=== PATIENT | male | born 1935 | race Caucasian/White ===

== ENCOUNTER 2017-05-23 11:16 | Observation (INO) | payer OTHER ==
[2017-05-23] VITALS (7 sets, daily range): BP systolic 139–162; BP diastolic 73–80; PULSE 70–85; RESP 16–20; TEMP 97.5–99.3; O2SAT 98–100
[~2017-05-23] VITALS: Ht 180.3 cm; Wt 110.0 kg
[~2017-05-23 11:16] MED LIST: AMMO12CR10 TOP; ATOR40TA PO; BUPR150T3 PO; CETI10 PO; DESE1CRE TOP; FOLI1 PO; GLIP10TA6 PO; HYDR-2768 PO; IMDU30TA PO; LISI-366 PO; METO25 PO; MOBI7.5T PO; NITR0.4S SL; NORV5TAB PO; NOVONP2 SQ; PARO40TA PO
--- NOTE | 2017-05-23 11:39 | PD ---
HPI Chief Complaint: Chest Pain Time Seen by Provider: 11:32 Travel History International Travel<30 days: No Contact w/Intl Traveler<30days: No Traveled to known affect area: No History of Present Illness HPI [place] in [place] for evaluation of chest pain ongoing for 2 days. Pain is substernal and radiates into his neck. Pain is pressure-like in nature. Patient reports associated headache, vomiting, and diaphoresis. Reports vomiting is nonbloody and nonbilious. Has a total of 8 vomiting episodes. Pain improves with rest and is worse with exertion. Pain is constant. Patient was given 4 baby aspirin at the [facility] prior to being sent to the emergency department then received 2 nitroglycerin en route by EMS that seemed to help with his pain. 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, REMOVED) Cardiac Catheterization: Yes Cardiovascular Problems: Yes High Cholesterol: Yes Congestive Heart Failure: No Diabetes: Yes Diminished Hearing: No Hypertension: Yes Past Surgical History Coronary Artery Bypass Graft: Yes Tonsillectomy: Yes Social History Alcohol Use: No Tobacco Use: No Substance Use: No Allergies-Medications (Allergen,Severity, Reaction): Coded Allergies: mold (Unverified Allergy, Severe, 05/23/17) sildenafil (Unverified Allergy, Severe, Headache, 05/23/17) Reported Meds & Prescriptions Reported Meds & Active Scripts Active Norvasc (Amlodipine Besylate) 5 Mg Tab 5 Mg PO DAILY 30 Days Reported Bupropion HCl 100 Mg Tab 150 Mg PO HS Azithromycin 250 Mg Tab 250 Mg PO DAILY Atorvastatin (Atorvastatin Calcium) 80 Mg Tab 40 Mg PO HS Paxil (Paroxetine HCl) 40 Mg Tab 40 Mg PO DAILY Nitrostat (Nitroglycerin) 0.4 Mg Sub 0.4 Mg SL DIRECTED Metoprolol Tartrate 25 mg (Metoprolol Tartrate) 25 Mg Tab 12.5 Mg PO BID Mobic (Meloxicam) 7.5 Mg Tab 7.5 Mg PO DAILY Lisinopril 40 mg (Lisinopril) 40 Mg Tab 1 Tab PO DAILY Imdur (Isosorbide Mononitrate) 30 Mg Tab 30 Mg PO DAILY Novolin N (Insulin Human NPH) 100 Units/Ml Inj 10 Units SQ HS Hctz (Hydrochlorothiazide) 25 Mg Tab 25 Mg PO DAILY Glipizide 10 Mg Tab 10 Mg PO BID TAKE BEFORE MEALS Folate 1 Mg Tab (Folic Acid) 1 Mg Tab 0.5 Mg PO DAILY Clotrimazole 1 % Cre 1 Applic TOP DAILY APPLY TO: Zyrtec 10 Mg Tab (Cetirizine HCl) 10 Mg Tab 10 Mg PO HS Bupropion Hcl Xl (Bupropion HCl) 150 Mg Tab 150 Mg PO DAILY Ammonium Lactate (Lactic Acid) 12 % Cre 1 Applic TOP DAILY APPLY TO: Review of Systems Except as stated in HPI: all other systems reviewed are Neg Physical Exam Narrative GENERAL: Well-developed, overly nourished, in no acute distress, and non-ill appearing. SKIN: Focused skin assessment warm and dry. HEAD: Atraumatic. Normocephalic. EYES: Pupils equal and round. EOMI. No scleral icterus. No injection or drainage. ENT: No nasal bleeding or discharge. Mucous membranes pink and moist. NECK: Trachea midline. No JVD. Supple. No nuclear rigidity. CARDIOVASCULAR: Regular rate and rhythm. 1/6 Murmur appreciated. Radial pulses 2+, intact, and equal bilaterally. RESPIRATORY: No accessory muscle use. No respiratory distress. Clear to auscultation. Breath sounds equal bilaterally. GASTROINTESTINAL: Abdomen soft, non-tender, nondistended, and no guarding. Hepatic and splenic margins not palpable. Normal bowel sounds 4. No pulsatile mass. MUSCULOSKELETAL: No obvious deformities. No clubbing. No cyanosis. No edema. Full range of motion. NEUROLOGICAL: Awake and alert. No obvious cranial nerve deficits. Motor grossly within normal limits. Normal speech. PSYCHIATRIC: Appropriate mood and affect; insight and judgment normal. Data Data Last Documented VS Vital Signs Date Time Temp Pulse Resp B/P Pulse Ox O2 Delivery O2 Flow Rate FiO2 05/23/17 11:34 100 Room Air 05/23/17 11:33 139/75 05/23/17 11:24 97.7 84 18 Orders Electrocardiogram (05/23/17 11:31) Basic Metabolic Panel (Bmp) (05/23/17 11:31) Ckmb (Isoenzyme) Profile (05/23/17 11:31) Complete Blood Count With Diff (05/23/17 11:31) Magnesium (Mg) (05/23/17 11:31) Prothrombin Time / Inr (Pt) (05/23/17 11:31) Act Partial Throm Time (Ptt) (05/23/17 11:31) Troponin I (05/23/17 11:31) Chest, Single Ap (05/23/17 11:31) Ecg Monitoring (05/23/17 11:31) Bilateral Bp Monitoring (05/23/17 11:31) Iv Access Insert/Monitor (05/23/17 11:31) Oximetry (05/23/17 11:31) Oxygen Administration (05/23/17 11:31) Sodium Chloride 0.9% Flush (Ns Flush) (05/23/17 11:45) Nitroglycerin Sl (Nitrostat Sl) (05/23/17 11:45) CKMB (05/23/17 11:40) CKMB% (05/23/17 11:40) Labs Laboratory Tests Test 05/23/17 11:40 White Blood Count 9.7 TH/MM3 Red Blood Count 4.70 MIL/MM3 Hemoglobin 15.2 GM/DL Hematocrit 44.3 % Mean Corpuscular Volume 94.3 FL Mean Corpuscular Hemoglobin 32.3 PG Mean Corpuscular Hemoglobin 34.2 % Concent Red Cell Distribution Width 13.2 % Platelet Count 157 TH/MM3 Mean Platelet Volume 8.0 FL Neutrophils (%) (Auto) 79.1 % Lymphocytes (%) (Auto) 13.1 % Monocytes (%) (Auto) 6.4 % Eosinophils (%) (Auto) 0.8 % Basophils (%) (Auto) 0.6 % Neutrophils # (Auto) 7.7 TH/MM3 Lymphocytes # (Auto) 1.3 TH/MM3 Monocytes # (Auto) 0.6 TH/MM3 Eosinophils # (Auto) 0.1 TH/MM3 Basophils # (Auto) 0.1 TH/MM3 CBC Comment DIFF FINAL Differential Comment Prothrombin Time 11.7 SEC Prothromb Time International 1.1 RATIO Ratio Activated Partial 21.5 SEC Thromboplast Time Sodium Level 137 MEQ/L Potassium Level 4.0 MEQ/L Chloride Level 103 MEQ/L Carbon Dioxide Level 25.4 MEQ/L Anion Gap 9 MEQ/L Blood Urea Nitrogen 15 MG/DL Creatinine 1.33 MG/DL Estimat Glomerular Filtration 52 ML/MIN Rate Random Glucose 196 MG/DL Calcium Level 9.0 MG/DL Magnesium Level 2.1 MG/DL Total Creatine Kinase 184 U/L Creatine Kinase MB 2.9 NG/ML Troponin I LESS THAN 0.02 NG/ML Exceptions Acute Myocardial Infarction ASA Not Given on Arrival: Already taken by patient Aspirin Comment: [facility] MDM Medical Decision Making Medical Screen Exam Complete: Yes Emergency Medical Condition: Yes Interpretation(s) EKG reviewed by Dr. Sheets shows paced rhythm with a ventricular rate of 86. No STEMI. Chest x-ray read by the radiologist shows: Post surgical changes. Mild, chronic interstitial changes but no acute abnormality. Differential Diagnosis Acute coronary syndrome, pneumonia, pneumothorax, electrolyte abnormality, atypical chest pain, other Narrative Course Patient was seen and examined. IV was established. Patient states on continues youth nutritional monitor. Initial laboratory and radiological studies were ordered and reviewed. Discussed all findings and plan of care with patient who is agreeable for admission. All questions were answered. Discussed patient with Dr. Sheets, who is in agreement with plan of care and disposition. Patient remained stable throughout ED course. Diagnosis Primary Impression: Chest pain Qualified Code: R07.9 - Chest pain, unspecified type Admitting Information Admitting Physician Requests: Observation Condition: Stable Rojelio Kelly May 23, 2017 11:39
[2017-05-23] MEDS: NITROGLYCERIN 0.4 MG SL 25 TABS/BTL SL SCH ×3 (11:40→11:55)
[2017-05-23] MEDS ORDERED: SODIUM CHLORIDE 0.9% FLUSH 10 ML FLUSH IVF PRN (11:45)
[2017-05-23 11:53] LABS: AUTOMATED NEUTROPHIL # 7.7 TH/MM3 (1.8-7.7); BASOPHIL # 0.1 TH/MM3 (0-0.2); BASOPHIL % 0.6 % (0.0-2.0); EOSINOPHIL # 0.1 TH/MM3 (0-0.4); EOSINOPHIL % 0.8 % (0.0-4.0); HEMATOCRIT 44.3 % (39.0-51.0); HEMO FLAGS DIFF FINAL; LYMPH % 13.1 % (9.0-44.0); LYMPHOCYTE # 1.3 TH/MM3 (1.0-4.8); MEAN CELL VOLUME 94.3 FL (80.0-100.0); MEAN CORPUSCULAR HEMOGLOBIN 32.3 PG (27.0-34.0); MEAN CORPUSCULAR HGB CONC 34.2 % (32.0-36.0); MONO % 6.4 % (0.0-8.0); NEUT % 79.1 % (16.0-70.0); PLATELET COUNT 157 TH/MM3 (150-450); RED CELL DISTRIBUTION WIDTH 13.2 % (11.6-17.2); WHITE BLOOD COUNT 9.7 TH/MM3 (4.0-11.0)
[2017-05-23] MEDS ORDERED: BUPR100T4 PO (11:59)
[2017-05-23] MEDS ORDERED: ATOR1TAB18 PO (11:59)
[2017-05-23] MEDS ORDERED: AZIT250T3 PO (11:59)
[2017-05-23 12:06] LABS: APTT (PATIENT) 21.5 SEC (24.3-30.1); INTERNATIONAL NORMALIZED RATIO 1.1 RATIO; PROTHROMBIN TIME - PATIENT 11.7 SEC (9.8-11.6)
[2017-05-23 12:07] LABS: ANION GAP 9 MEQ/L (5-15); BICARBONATE 25.4 MEQ/L (21.0-32.0); BLOOD UREA NITROGEN 15 MG/DL (7-18); CHLORIDE 103 MEQ/L (98-107); GLOMERULAR FILTRATION RATE 52 ML/MIN (>89); MAGNESIUM 2.1 MG/DL (1.5-2.5); SODIUM (NA) 137 MEQ/L (136-145)
[2017-05-23 12:12] LABS: CREATINE KINASE 184 U/L (39-308)
[2017-05-23 12:25] LABS: CKMB 2.9 NG/ML (0.5-3.6)
--- NOTE | 2017-05-23 12:31 | RADRPT ---
EXAM DATE/TIME: 05/23/2017 12:00 [facility] COMPARISON: CHEST SINGLE AP, March 01, 2015, 12:39. INDICATIONS : Chest pain. MEDICAL HISTORY : Hypertension. Myocardial infarction. Diabetes mellitus type II. SURGICAL HISTORY : CABG. Pacemaker. ENCOUNTER: Initial ACUITY: 1 day PAIN SCORE: 6/10 LOCATION: Left upper chest FINDINGS: The patient is post median sternotomy. The heart is mildly enlarged. There is a transvenous pacer. Th ere are mild chronic interstitial changes. These are stable compared to previous exam of 03/01/15.The visualized bony structures demonstrate mild degenerative changes but are otherwise intact. CONCLUSION: 1. Post surgical changes. Mild, chronic interstitial changes but no acute abnormality. Joshua Han MD on May 23, 2017 at 12:29 Board Certified Radiologist. This report was verified electronically.
[2017-05-23] MEDS ORDERED: CETI10CH CHEW (12:46)
[2017-05-23] MEDS ORDERED: FOLI1TAB6 PO (12:46)
[2017-05-23] MEDS ORDERED: BUSP15TA PO (12:46)
[2017-05-23] MEDS ORDERED: DIVA250T3 PO (12:46)
[2017-05-23] MEDS ORDERED: ZOLP10TA3 PO (12:59)
[2017-05-23] MEDS ORDERED: METO25TA3 PO (12:59)
[2017-05-23] MEDS ORDERED: GLUC4CHW CHEW (12:59)
[2017-05-23] MEDS ORDERED: LANTUS2P SQ (12:59)
[2017-05-23] MEDS ORDERED: NAPR375T PO (12:59)
[2017-05-23] MEDS ORDERED: LISI40TA PO (12:59)
[2017-05-23] MEDS ORDERED: NITR1SUB3 SL (12:59)
[2017-05-23] MEDS ORDERED: PRED1SUS6 (12:59)
[2017-05-23] MEDS ORDERED: FURO20TA PO (12:59)
[2017-05-23] MEDS ORDERED: PARO40TA2 PO (12:59)
[2017-05-23] MEDS ORDERED: ONDANSETRON HCL 4 MG/2 ML VIAL IV PUSH ONE (16:30)
[2017-05-23] MEDS: NITROGLYCERIN 2% OINT 1 GM PACKET TOPICAL SCH (16:44)
[2017-05-23] MEDS ORDERED: ONDANSETRON HCL 4 MG/2 ML VIAL IV PRN (17:00)
[2017-05-23] MEDS ORDERED: ACETAMINOPHEN/HYDROcodone 325 MG/7.5 MG TAB PO PRN (17:00)
[2017-05-23] MEDS ORDERED: LIDOCAINE VISCOUS 2% SOLN 15 ML UDC PO ONE (17:00)
[2017-05-23] MEDS ORDERED: ATROPINE/SCOPOLAM/HYOSCYAM/PB ELIXIR 10 ML CUP PO ONE (17:00)
[2017-05-23] MEDS ORDERED: SODIUM CHLORIDE 0.9% FLUSH 5 ML FLUSH IVF PRN (17:00)
[2017-05-23] MEDS ORDERED: ALUMINUM/MAGNESIUM/SIMETH 30 ML CUP PO ONE (17:00)
[2017-05-23] MEDS ORDERED: ACETAMINOPHEN 500 MG CPLT PO PRN (17:00)
--- NOTE | 2017-05-23 17:10 | HHI.HP ---
H[facility] Phys[facility] Chief Complaint Chest pain History of Present Illness This is a 81-year-old male that presents to ED with history of CAD with bypass 2012 the complains of chest discomfort as been present for 2 days. He states is essentially been constant. The discomfort will almost go away but has never completely resolved. It does wax and wane. He is found that activity which includes walking to the bathroom will worsen the discomfort. He has been short of breath with it, nauseous, diaphoretic. He estimates he's had 8 episodes of emesis throughout this. He states it does feel similar to when he needed his bypass. Cannot recall seeing administration clerk recently through the [place]. Cannot recall recent stress testing. He denies abdominal pain except for when he has emesis. It is been nonbloody emesis. Denies dark or tarry stool. Denies bloody stools. Review of Systems General: Patient denies fevers, chills recent, and recent travel HEENT: Patient denies headache, sore throat, difficulty swallowing. Cardiovascular: Has the chest discomfort as mentioned above. Denies sensation of heart beating rapidly or irregularly. No syncope. He has been diaphoretic. Respiratory: He has been short of breath. Denies inspirational chest discomfort. Denies coughing wheezing or hemoptysis. GI: He has had nausea and emesis. Denies hematemesis. Denies dark or bloody stools. Denies constipation or diarrhea. Musculoskeletal: Patient denies joint pain or edema. Denies calf pain or edema. Neurovascular: Patient denies numbness, tingling, weakness in extremities. Denies headache. Endocrine: Denies polyuria and polydipsia. Hematologic: Denies easy bruising. Skin: Denies rash or itching. Past Family Social History Allergies: Coded Allergies: mold (Unverified Allergy, Severe, 05/23/17) sildenafil (Unverified Allergy, Severe, Headache, 05/23/17) Past Medical History CAD with CABG. Hypertension, hyperlipidemia and diabetes. Past Surgical History CABG in 2012. Reported Medications Reported Meds & Active Scripts Active Reported Zolpidem (Zolpidem Tartrate) 10 Mg Tab 5 Mg PO HS PRN Prednisolone Acetate Opth 1% Susp Paroxetine (Paroxetine HCl) 40 Mg Tab 40 Mg PO DAILY Nitroglycerin SL (Nitroglycerin) 0.4 Mg Subl 0.4 Mg SL DIRECTED PRN ONE TABLET UNDER THE TONGUE NEEDED FOR CHEST PAIN, MAY REPEAT EVERY FIVE MINUTES FOR A TOTAL OF 3 DOSES OR CALL 911 IF NO RELIEF Naproxen 375 Mg Tab 375 Mg PO BID Metoprolol Tartrate 25 Mg Tab 12.5 Mg PO BID Lisinopril 40 Mg Tab 40 Mg PO DAILY Lantus Inj (Insulin Glargine) 1,000 Unit/10 Ml Vial 42 Units SQ HS Glucose (Dextrose) 4 Gm Chew 4 Gm CHEW DIRECTED Furosemide 20 Mg Tab 20 Mg PO DAILY Folic Acid 1 Mg Tablet Divalproex ER (Divalproex Sodium) 250 Mg Robbie 750 Mg PO HS Cetirizine (Cetirizine HCl) 10 Mg Chew 10 Mg CHEW DAILY Buspirone (Buspirone HCl) 15 Mg Tab 15 Mg PO BID Bupropion HCl 100 Mg Tab 150 Mg PO HS Azithromycin 250 Mg Tab 250 Mg PO DAILY Atorvastatin (Atorvastatin Calcium) 80 Mg Tab 40 Mg PO HS Active Ordered Medications Current Medications Medications (Trade) Dose Ordered Sig/Cassie Route Start Time Stop Time Status Last Admin (NS Flush) 2 ml UNSCH PRN IVF 05/23/17 11:45 (Nitroglycerin 2% Oint) 1 inch Q6HR TOPICAL 05/23/17 18:00 05/23/17 16:44 (NS Flush) 2 ml UNSCH PRN IVF 05/23/17 17:00 UNV (NS Flush) 2 ml BID IVF 05/23/17 21:00 UNV (Tylenol) 500 mg Q4H PRN PO 05/23/17 17:00 UNV ([place] 7.5-325 Mg) 1 tab Q4H PRN PO 05/23/17 17:00 UNV (Zofran Inj) 4 mg Q6H PRN IV 05/23/17 17:00 UNV (Protonix) 40 mg DAILY PO 05/23/17 17:00 UNV (Xylocaine 2% Viscous) 10 ml STAT ONCE PO 05/23/17 17:00 05/23/17 17:01 UNV ( Liq) 10 ml NOW ONCE PO 05/23/17 17:00 05/23/17 17:01 UNV (Mag-Al Plus Susp Liq) 30 ml STAT ONCE PO 8/17/17 17:00 05/23/17 17:01 UNV Family History There is family history of CAD. Social History Patient is a lifetime nonsmoker. Denies alcohol or illicit drugs. Physical Exam Vital Signs Vital Signs Date Time Temp Pulse Resp B/P Pulse Ox O2 Delivery O2 Flow Rate FiO2 05/23/17 15:22 97.5 77 16 162/80 98 05/23/17 11:34 100 Room Air 05/23/17 11:34 100 Room Air 05/23/17 11:33 139/75 05/23/17 11:24 97.7 84 18 139/75 98 Physical Exam GENERAL: This is a well-nourished, well-developed patient, in no apparent distress. Patient speaks in clear complete sentences. Patient is pleasant. HEENT: Head is atraumatic and normocephalic. Neck is supple without lymphadenopathy and trachea is midline. No JVD or carotid bruits. CARDIOVASCULAR: Regular rate and rhythm without murmurs, gallops, or rubs. RESPIRATORY: Clear to auscultation. Breath sounds equal bilaterally. No wheezes , rales, or rhonchi. Chest wall is nontender. No use of accessory muscles. GASTROINTESTINAL: Abdomen is nontender, nondistended. Abdomen soft. No obvious pulsatile mass or bruit. No CVA tenderness. Strong femoral pulses bilaterally. Normal bowel sounds in all quadrants. MUSCULOSKELETAL: Patient is moving upper and lower extremities freely. No calf tenderness or edema, no Homans sign. Strong pulses in upper and lower extremities. NEUROLOGICAL: Patient is alert and oriented. Cranial nerves 2-12 are grossly intact. No focal deficits and speech is clear. SKIN: No rash and turgor is normal. Laboratory Laboratory Tests Test 05/23/17 11:40 White Blood Count 9.7 Red Blood Count 4.70 Hemoglobin 15.2 Hematocrit 44.3 Mean Corpuscular Volume 94.3 Mean Corpuscular Hemoglobin 32.3 Mean Corpuscular Hemoglobin 34.2 Concent Red Cell Distribution Width 13.2 Platelet Count 157 Mean Platelet Volume 8.0 Neutrophils (%) (Auto) 79.1 Lymphocytes (%) (Auto) 13.1 Monocytes (%) (Auto) 6.4 Eosinophils (%) (Auto) 0.8 Basophils (%) (Auto) 0.6 Neutrophils # (Auto) 7.7 Lymphocytes # (Auto) 1.3 Monocytes # (Auto) 0.6 Eosinophils # (Auto) 0.1 Basophils # (Auto) 0.1 CBC Comment DIFF FINAL Differential Comment Prothrombin Time 11.7 Prothromb Time International 1.1 Ratio Activated Partial 21.5 Thromboplast Time Sodium Level 137 Potassium Level 4.0 Chloride Level 103 Carbon Dioxide Level 25.4 Anion Gap 9 Blood Urea Nitrogen 15 Creatinine 1.33 Estimat Glomerular Filtration 52 Rate Random Glucose 196 Calcium Level 9.0 Magnesium Level 2.1 Total Creatine Kinase 184 Creatine Kinase MB 2.9 Troponin I LESS THAN 0.02 Result Diagram: 05/23/17 1140 05/23/17 1140 Imaging Last 48 hours Impressions Chest X-Ray 05/23/17 1131 Signed Impressions: Service Date/Time: , May 23, 2017 12:00 - CONCLUSION: 1. Post surgical changes. Mild, chronic interstitial changes but no acute abnormality. Joshua Han MD Course Initial EKG has sinus rhythm without significant ST segment depressions or elevations. Assessment and Plan Assessment and Plan * Chest pain: Patient states his symptoms are similar to when he needed his bypass. He is having continued chest discomfort that waxes and wanes however. He was seen by Dr. Barrie Jones of cardiology in the chest pain center and will be admitted to hospitalist services to further evaluate his frequent emesis and chest pain. He was given Nitrol ointment. He was given GI cocktail. Patient is agreeable to this plan. * Diabetes: Continue current medication. Have sliding scale insulin coverage. * Hypertension: Continue current medication. * Hyperlipidemia: Continue current medication. Kamlesh Dumont May 23, 2017 17:10
[2017-05-23] MEDS: PANTOPRAZOLE SOD 40 MG DELAYED RELEASE TAB PO SCH (17:28)
[2017-05-23] MEDS ORDERED: DEXTROSE 50% IN WATER 50 ML VIAL(D50) IV PRN (17:45)
[2017-05-23] MEDS ORDERED: GLUCAGON 1 MG/ML VIAL IM/SQ PRN (17:45)
[2017-05-23] MEDS ORDERED: PILL SPLITTER OTHER PRN (18:00)
[2017-05-23] MEDS ORDERED: PROMETHAZINE INJ 25 MG/ML VIAL IM ONE (18:15)
[2017-05-23] MEDS ORDERED: ZOLPIDEM TARTRATE 5 MG TAB PO PRN (18:15)
[2017-05-23 18:18] LABS: CREATINE KINASE 148 U/L (39-308)
--- NOTE | 2017-05-23 18:19 | HHI.HP ---
HPI Service [facility] Primary Care Physician [facility] Admission Diagnosis chest pain Diagnoses: Chief Complaint: Chest pain Travel History International Travel<30 Days: No Contact w/Intl Traveler <30 Da: No Traveled to Known Affected Are: No History of Present Illness Written by Juliette Santos, acting as scribe for Dr. Green on 05/23/17 at 18: 19. Mr. Martinez is a 81-year-old male patient with a known medical history of dyslipidemia, CAD with CABG in 2012, diabetes and hypertension who presented to the ED with complaints of chest pain. Patient states that he had his first bout of vomiting on Saturday around 7 am and has counted a total of 8 bouts of vomiting since then. He states that he had an associated headache, chest pain, diaphoresis and abdominal pain. Patient states that the chest pain has been constant since Saturday, will subside at times with rest but will never completely go away. He does state that the pain is worse with activity. Also states that the pain radiates up his neck. States that the pain does relate similarity to his chest pain at the time before his CABG in 2012. Patient was seen [facility] the [facility] today before presentation to the ED and was given 4 baby aspirin and 2 nitroglycerin via EMS which seemed to relieve the pain. Review of Systems Constitutional: COMPLAINS OF: Diaphoretic episodes, DENIES: Fever, Chills Endocrine: DENIES: Polydipsia, Polyuria Cardiovascular: COMPLAINS OF: Chest pain Gastrointestinal: COMPLAINS OF: Nausea, Vomiting, DENIES: Constipation, Diarrhea Neurologic: COMPLAINS OF: Headache Except as stated in HPI: all other systems reviewed are Neg Past Family Social History Past Medical History CAD with CABG. Hypertension, hyperlipidemia and diabetes. Past Surgical History CABG in 2012. Left ankle surgery x 5 Left ulnar fracture repair. Reported Medications Reported Meds & Active Scripts Active Reported Zolpidem (Zolpidem Tartrate) 10 Mg Tab 5 Mg PO HS PRN Prednisolone Acetate Opth 1% Susp Paroxetine (Paroxetine HCl) 40 Mg Tab 40 Mg PO DAILY Nitroglycerin SL (Nitroglycerin) 0.4 Mg Subl 0.4 Mg SL DIRECTED PRN ONE TABLET UNDER THE TONGUE NEEDED FOR CHEST PAIN, MAY REPEAT EVERY FIVE MINUTES FOR A TOTAL OF 3 DOSES OR CALL 911 IF NO RELIEF Naproxen 375 Mg Tab 375 Mg PO BID Metoprolol Tartrate 25 Mg Tab 12.5 Mg PO BID Lisinopril 40 Mg Tab 40 Mg PO DAILY Lantus Inj (Insulin Glargine) 1,000 Unit/10 Ml Vial 42 Units SQ HS Glucose (Dextrose) 4 Gm Chew 4 Gm CHEW DIRECTED Furosemide 20 Mg Tab 20 Mg PO DAILY Folic Acid 1 Mg Tablet 1 PO DAILY Divalproex ER (Divalproex Sodium) 250 Mg Robbie 750 Mg PO HS Cetirizine (Cetirizine HCl) 10 Mg Chew 10 Mg CHEW DAILY Buspirone (Buspirone HCl) 15 Mg Tab 15 Mg PO BID Bupropion HCl 100 Mg Tab 150 Mg PO HS Azithromycin 250 Mg Tab 250 Mg PO DAILY Atorvastatin (Atorvastatin Calcium) 80 Mg Tab 40 Mg PO HS Allergies: Coded Allergies: mold (Unverified Allergy, Severe, 05/23/17) sildenafil (Unverified Allergy, Severe, Headache, 05/23/17) Active Ordered Medications Current Medications Medications (Trade) Dose Ordered Sig/Cassie Route Start Time Stop Time Status Last Admin (Nitroglycerin 2% Oint) 1 inch Q6HR TOPICAL 05/23/17 18:00 05/23/17 16:44 (NS Flush) 2 ml UNSCH PRN IVF 05/23/17 17:00 (NS Flush) 2 ml BID IVF 05/23/17 21:00 (Tylenol) 500 mg Q4H PRN PO 05/23/17 17:00 (Riley 7.5-325 Mg) 1 tab Q4H PRN PO 05/23/17 17:00 (Zofran Inj) 4 mg Q6H PRN IV 05/23/17 17:00 (Protonix) 40 mg DAILY PO 05/23/17 17:00 05/23/17 17:28 (Lipitor) 40 mg HS PO 05/23/17 21:00 UNV (Wellbutrin) 150 mg HS PO 05/23/17 21:00 UNV (Buspar) 15 mg BID PO 05/23/17 21:00 UNV (Depakote Er) 750 mg HS PO 05/23/17 21:00 UNV (Lasix) 20 mg DAILY PO 05/24/17 09:00 UNV (Lantus Inj) 42 units HS SQ 05/23/17 21:00 UNV (Lopressor) 12.5 mg BID PO 05/23/17 21:00 UNV (Paxil) 40 mg DAILY PO 05/24/17 09:00 UNV (Ambien) 5 mg HS PRN PO 05/23/17 17:15 UNV Non-Formulary Medication 40 mg DAILY PO 05/24/17 09:00 UNV (D50w (Vial) Inj) 25 ml UNSCH PRN IV 05/23/17 17:45 UNV (Glucagon Inj) 1 mg UNSCH PRN IM/SQ 05/23/17 17:45 UNV (Phenergan Inj) 25 mg ONCE ONCE IM 05/23/17 17:45 05/23/17 17:46 UNV Family History Paternal medical history significant for OK at the age of 5252 years old. Social History Patient denies any prior or current tobacco use. Denies any alcohol use. Denies any illicit drug use. Physical Exam Vital Signs Vital Signs Date Time Temp Pulse Resp B/P Pulse Ox O2 Delivery O2 Flow Rate FiO2 05/23/17 15:22 97.5 77 16 162/80 98 05/23/17 11:34 100 Room Air 05/23/17 11:34 100 Room Air 05/23/17 11:33 139/75 05/23/17 11:24 97.7 84 18 139/75 98 Physical Exam GENERAL: This is a well-nourished, well-developed patient, in no apparent distress. SKIN: No rashes, ecchymoses or lesions. Cool and clammy. HEENT: Atraumatic. Normocephalic. Pupils equal round and reactive. Extraocular motions intact. No scleral icterus. No injection or drainage. Nose without bleeding. Airway patent. NECK: Trachea midline. No JVD or lymphadenopathy. Supple. CARDIOVASCULAR: Regular rate and rhythm without murmurs, gallops, or rubs. RESPIRATORY: Clear to auscultation. Breath sounds equal bilaterally. No wheezes , rales, or rhonchi. GASTROINTESTINAL: Abdomen soft, non-tender. Round and obese. No guarding. MUSCULOSKELETAL: Extremities without clubbing, cyanosis, or edema. No joint tenderness, effusion, or edema noted. NEUROLOGICAL: Awake and alert. Cranial nerves II through XII intact. Motor and sensory grossly within normal limits. Five out of 5 muscle strength in all muscle groups. Normal speech. Laboratory Laboratory Tests Test 05/23/17 11:40 White Blood Count 9.7 Red Blood Count 4.70 Hemoglobin 15.2 Hematocrit 44.3 Mean Corpuscular Volume 94.3 Mean Corpuscular Hemoglobin 32.3 Mean Corpuscular Hemoglobin 34.2 Concent Red Cell Distribution Width 13.2 Platelet Count 157 Mean Platelet Volume 8.0 Neutrophils (%) (Auto) 79.1 Lymphocytes (%) (Auto) 13.1 Monocytes (%) (Auto) 6.4 Eosinophils (%) (Auto) 0.8 Basophils (%) (Auto) 0.6 Neutrophils # (Auto) 7.7 Lymphocytes # (Auto) 1.3 Monocytes # (Auto) 0.6 Eosinophils # (Auto) 0.1 Basophils # (Auto) 0.1 CBC Comment DIFF FINAL Differential Comment Prothrombin Time 11.7 Prothromb Time International 1.1 Ratio Activated Partial 21.5 Thromboplast Time Sodium Level 137 Potassium Level 4.0 Chloride Level 103 Carbon Dioxide Level 25.4 Anion Gap 9 Blood Urea Nitrogen 15 Creatinine 1.33 Estimat Glomerular Filtration 52 Rate Random Glucose 196 Calcium Level 9.0 Magnesium Level 2.1 Total Creatine Kinase 184 Creatine Kinase MB 2.9 Troponin I LESS THAN 0.02 Result Diagram: 05/23/17 1140 05/23/17 1140 Imaging Last Impressions Chest X-Ray 05/23/17 1131 Signed Impressions: Service Date/Time: May 12:00 - CONCLUSION: 1. Post surgical changes. Mild, chronic interstitial changes but no acute abnormality. Joshua Han MD Assessment and Plan Assessment and Plan Mr. Martinez is a 81-year-old male patient with a known medical history of dyslipidemia, CAD with CABG in 2012, diabetes and hypertension who presented to the ED with complaints of chest pain and vomiting x 2 days. Atypical chest pain - Patient was seen by Dr. Jones in the chest pain center with recommendations to admit to hospitalist service for work-up of chest pain complaint and GI complaints. - Follow serial troponins and EKGs. First set unremarkable. - Nitroglycerin ointment given in [facility]. - Control pain, Riley PO q4h PRN per pain scale. - CXR reviewed showing no acute abnormalities. - EKG reviewed showing presence of atrial pacemaker, PVC, some t-wave abnormality. - Will make nothing by mouth after midnight except by mouth medications, we' ll give Lopressor tonight but will hold after midnight. Continue home Lipitor and aspirin daily. Nausea and vomiting: questionable etiology gastritis vs cardiac etiology. GI cocktail given in ED. Zofran and Phenergan PRN available. IVFs. Type 2 diabetes mellitus, chronic: Continue current medication. ACCU checks ACHS. Sliding scale insulin, cover as needed. Continue home Levemir 42 units sq Hs. Coronary artery disease with history of CABG - Continue Metoprolol and aspirin. Acute kidney injury suspect secondary to dehydration and frequent emesis - Creatinine 1.33 on presentation. No baseline creatinine available. - Encourage hydration. - Recheck BMP in am. Follow. Hypertension, chronic: Continue Lisinopril. Monitor BP closely. Hyperlipidemia: Continue home Lipitor. Depression: Continue home Bupropion and Paxil. GI Prophylaxis: Protonix. GI cocktail given. DVT Prophylaxis: SCDs/TEDs. Lovenox. I Juliette Santos May 23, 2017 18:19 Arley Green MD May 23, 2017 18:56
[2017-05-23 18:36] LABS: CKMB 2.1 NG/ML (0.5-3.6)
[2017-05-23] MEDS ORDERED: ENOXAPARIN SODIUM 30 MG/0.3 ML SYRINGE SQ SCH (20:00)
[2017-05-23] MEDS ORDERED: buPROPion HCL 100 MG TAB PO SCH (21:00)
[2017-05-23] MEDS ORDERED: METOPROLOL TARTRATE 25 MG TAB PO SCH (21:00)
[2017-05-23] MEDS: SODIUM CHLORIDE 0.9% FLUSH 5 ML FLUSH IVF SCH (22:55)
[2017-05-23] MEDS: buPROPion HCL 150 MG SUSTAINED RELEASE TAB PO SCH (22:55)
[2017-05-23] MEDS: ATORVASTATIN 40 MG TAB PO SCH (22:57)
[2017-05-23] MEDS: busPIRone HCL 10 MG TAB PO SCH (22:57)
[2017-05-23] MEDS: DIVALPROEX SODIUM E.R. 250 MG TAB PO SCH (22:57)
[2017-05-23] MEDS: INSULIN DETEMIR 100 UNITS/ML VIAL SQ SCH (22:59)
[2017-05-23] MEDS: INSULIN ASPART SUPPLEMENTAL SCALE SQ SCH (23:07)
[2017-05-24] VITALS (9 sets, daily range): BP systolic 114–145; BP diastolic 66–73; PULSE 61–76; RESP 16–19; TEMP 97.5–98.5; O2SAT 95–100
[2017-05-24] MEDS: NITROGLYCERIN 2% OINT 1 GM PACKET TOPICAL SCH ×4 (06:00→19:03)
[2017-05-24] MEDS: INSULIN ASPART SUPPLEMENTAL SCALE SQ SCH ×4 (06:48→21:00)
[2017-05-24] MEDS: busPIRone HCL 10 MG TAB PO SCH ×2 (09:11→21:49)
[2017-05-24] MEDS: SODIUM CHLORIDE 0.9% FLUSH 5 ML FLUSH IVF SCH ×2 (09:11→21:48)
[2017-05-24] MEDS: PANTOPRAZOLE SOD 40 MG DELAYED RELEASE TAB PO SCH (09:11)
[2017-05-24] MEDS: ASPIRIN 325 MG TAB PO SCH (09:12)
[2017-05-24] MEDS: FUROSEMIDE 20 MG TAB PO SCH (09:12)
[2017-05-24] MEDS: PARoxetine HCL 20 MG TAB PO SCH (09:13)
[2017-05-24] MEDS: LISINOPRIL 20 MG TAB PO SCH (09:13)
--- NOTE | 2017-05-24 11:00 | HHI.PR ---
Subjective Remarks Follow up for chest pain, dyspnea, nausea/vomiting. The patient reports his nausea/vomiting has resolved. Denies any abdominal pain/fevers/chills. He denies any chest pain today, however reports feeling "winded" just ambulating 15feet to the restroom. He is very concerned that is related to his heart. He reports very similar symptoms prior to his CABG in 2012. He states even minimal physical exertion at home will make him short of breath, diaphoretic, with chest discomfort and subsequent nausea. The patient agrees to nuclear stress test today. He does not see a steel heater, only PCP at the OR. He does admit to daily NSAID use with Naproxen bid and does not take this with food nor is he on any PPI. Objective Vitals Vital Signs Date Time Temp Pulse Resp B/P Pulse Ox O2 Delivery O2 Flow Rate FiO2 05/24/17 08:26 97.6 65 16 143/66 100 05/24/17 08:24 95 21 05/24/17 06:15 98.5 67 18 120/67 99 05/24/17 04:20 61 05/24/17 00:33 98.1 76 18 114/70 99 05/24/17 00:20 76 05/23/17 21:01 99.3 85 20 146/73 98 05/23/17 19:50 83 05/23/17 16:58 70 05/23/17 15:22 97.5 77 16 162/80 98 05/23/17 11:34 100 Room Air 05/23/17 11:34 100 Room Air 05/23/17 11:33 139/75 05/23/17 11:24 97.7 84 18 139/75 98 Result Diagram: 05/23/17 1140 05/23/17 1140 Imaging Last Impressions Chest X-Ray 05/23/17 1131 Signed Impressions: Service Date/Time: May 12:00 - CONCLUSION: 1. Post surgical changes. Mild, chronic interstitial changes but no acute abnormality. Joshua Han MD Objective Remarks GENERAL: Well-nourished, well-developed pleasant elderly male patient in [facility]. SKIN: Warm and dry. No rash. HEENT: Normocephalic. Atraumatic. Pupils equal and round. Mucous membranes pink and moist. CARDIOVASCULAR: Regular rate and rhythm. S1, S2 noted. No murmur appreciated. No chest wall tenderness to palpation. Midline sternotomy scar and left upper chest pacer. RESPIRATORY: No accessory muscle use. Clear to auscultation. Breath sounds equal bilaterally. GASTROINTESTINAL: Abdomen soft, non-tender, nondistended. Normoactive bowel sounds x4. MUSCULOSKELETAL: No obvious deformities. Extremities without clubbing, cyanosis , or edema. NEUROLOGICAL: Awake and alert. No obvious cranial nerve deficits. Motor grossly within normal limits. Moves all extremities spontaneously. Normal speech. PSYCHIATRIC: Appropriate mood and affect; insight and judgment normal. Medications and IVs Current Medications Medications (Trade) Dose Ordered Sig/Cassie Route Start Time Stop Time Status Last Admin (Nitroglycerin 2% Oint) 1 inch Q6HR TOPICAL 05/23/17 18:00 05/23/17 16:44 (NS Flush) 2 ml UNSCH PRN IVF 05/23/17 17:00 (NS Flush) 2 ml BID IVF 05/23/17 21:00 05/24/17 09:11 (Tylenol) 500 mg Q4H PRN PO 05/23/17 17:00 (Boomer 7.5-325 Mg) 1 tab Q4H PRN PO 05/23/17 17:00 (Zofran Inj) 4 mg Q6H PRN IV 05/23/17 17:00 (Protonix) 40 mg DAILY PO 05/23/17 17:00 05/24/17 09:11 (Lipitor) 40 mg HS PO 05/23/17 21:00 05/23/17 22:57 (Buspar) 15 mg BID PO 05/23/17 21:00 05/24/17 09:11 (Depakote Er) 750 mg HS PO 05/23/17 21:00 05/23/17 22:57 (Lasix) 20 mg DAILY PO 05/24/17 09:00 05/24/17 09:12 (Levemir Inj) 42 units HS SQ 05/23/17 21:00 05/23/17 22:59 (Paxil) 40 mg DAILY PO 05/24/17 09:00 05/24/17 09:13 (Ambien) 5 mg HS PRN PO 05/23/17 18:15 (Prinivil) 40 mg DAILY PO 05/24/17 09:00 05/24/17 09:13 (D50w (Vial) Inj) 25 ml UNSCH PRN IV 05/23/17 17:45 (Glucagon Inj) 1 mg UNSCH PRN IM/SQ 05/23/17 17:45 (Pill Splitter) 1 ea UNSCH PRN OTHER 05/23/17 18:00 (Aspirin) 325 mg DAILY PO 05/24/17 09:00 05/24/17 09:12 (Lovenox Inj) 30 mg Q24H SQ 05/23/17 20:00 05/23/17 22:54 (Wellbutrin Sr) 150 mg HS PO 05/23/17 22:00 05/23/17 22:55 A/P Problem List: (1) Chest pain ICD Code: R07.9 Status: Acute (2) CAD (coronary artery disease) ICD Code: I25.10 Status: Acute Assessment and Plan 81-year-old male patient with a known medical history of dyslipidemia, CAD with CABG in 2012, diabetes and hypertension who presented to the ED with complaints of chest pain and vomiting x 2 days. Chest pain: with associated dyspnea/diaphoresis/nausea; worse with any exertion , relieved by rest. CXR reviewed showing no acute abnormalities. - Patient was seen by Dr. Jones in the chest pain center with recommendations to admit to hospitalist service for further work-up of chest pain complaint and GI complaints. - Serial cardiac enzymes negative x3 and EKG reviewed, NSR with no acute ischemic changes - Continue nitro ointment, aspirin, statin, BB, pain control with norco prn - Kept NPO, check nuclear stress test today, consult cardiology if positive Nausea/vomiting: questionable etiology gastritis vs cardiac etiology. GI cocktail given in ED. Zofran and Phenergan PRN available. IVFs. Patient does take Naproxen bid, started on Protonix. N/V resolved. Type 2 diabetes mellitus, chronic: Continue current medication. ACCU checks ACHS. Sliding scale insulin, cover as needed. Continue home Levemir 42 units sq Hs. Coronary artery disease with history of CABG: Continue Metoprolol and aspirin. Acute kidney injury: suspect secondary to dehydration and frequent emesis. Creatinine 1.33, no previous labs to compare. Encourage hydration. Repeat BMP. Hypertension, chronic: Continue Lisinopril. Monitor BP closely. Hyperlipidemia: Continue home Lipitor. Depression: Continue home Bupropion and Paxil. GI Prophylaxis: Protonix. DVT Prophylaxis: SCDs/TEDs. Lovenox. Discharge Planning 1045hrs: Likely discharge if nuclear stress test unremarkable and no further chest pain/nausea/vomiting. Problem Qualifiers (1) Chest pain: Qualified Code: R07.9 - Chest pain, unspecified type Jocelyn Castanon PA-C May 24, 2017 11:00 am
[2017-05-24] MEDS ORDERED: REGADENOSON INJ 0.4 MG/5 ML SYR ONE (13:13)
--- NOTE | 2017-05-24 13:54 | EKG ---
Date Performed: 05/23/2017 Time Performed: 11:31:16 PTAGE: 81 years EKG: ELECTRONIC ATRIAL PACEMAKER NONSPECIFIC T-WAVE ABNORMALITY ABNORMAL RHYTHM ECG PREVIOUS TRACING : 03/01/2015 18.39 Since previous tracing, atrial pacing is new DOCTOR: Barrie Jones Interpretating Date/Time 05/24/2017 13:53:29
--- NOTE | 2017-05-24 13:55 | EKG ---
Date Performed: 05/23/2017 Time Performed: 16:47:01 PTAGE: 81 years EKG: Sinus rhythm MINIMAL VOLTAGE CRITERIA FOR LVH, CONSIDER NORMAL VARIANT NONSPECIFIC T-WAVE ABNORMALITY BORDERLINE ECG PREVIOUS TRACING : 05/23/2017 11.31 Since previous tracing, no significant change noted DOCTOR: Barrie Jones Interpretating Date/Time 05/24/2017 13:53:51
--- NOTE | 2017-05-24 13:56 | EKG ---
Date Performed: 05/23/2017 Time Performed: 17:50:09 PTAGE: 81 years EKG: ELECTRONIC ATRIAL PACEMAKER BORDERLINE LEFT AXIS DEVIATION MODERATE VOLTAGE CRITERIA FOR LV H, CONSIDER NORMAL VARIANT NONSPECIFIC T-WAVE ABNORMALITY ABNORMAL RHYTHM ECG PREVIOUS TRACING : 05/23/2017 16.47 compared to previous tracing atrial pacing now present DOCTOR: Barrie Jones Interpretating Date/Time 05/24/2017 13:55:04
--- NOTE | 2017-05-24 13:57 | EKG ---
Date Performed: 05/23/2017 Time Performed: 21:13:44 PTAGE: 81 years EKG: Sinus rhythm MINIMAL VOLTAGE CRITERIA FOR LVH, CONSIDER NORMAL VARIANT NONSPECIFIC T-WAVE ABNORMALITY BORDERLINE ECG PREVIOUS TRACING : 05/23/2017 17.50 Since previous tracing, no significant change noted DOCTOR: Barrie Jones Interpretating Date/Time 05/24/2017 13:56:19
--- NOTE | 2017-05-24 14:19 | RADRPT ---
EXAM DATE/TIME: 05/24/2017 12:33 [place] COMPARISON: MYOCARDIAL PERF TREADMILL SPECT, GATED W/EF, March 02, 2015, 8:43. INDICATIONS : Angina. DOSE: 30 mCi Tc99m Myoview at stress. 11 mCi Tc99m Myoview at rest. 0.4 mg Lexiscan STRESS SYMPTOMS: Headache and short of breath. EJECTION FRACTION: 44% MEDICAL HISTORY : Hypertension. SURGICAL HISTORY : CABG ENCOUNTER: Initial ACUITY: 1 day PAIN SCALE: 3/10 LOCATION: Bilateral chest TECHNIQUE: The patient underwent pharmacologic stress with infusion of prescribed dose. Continuous ECG tracing was monitored during stress. Gated SPECT imaging was performed after stress and conventional SPECT i maging was performed at rest. The examination was performed on a SPECT/CT scanner, both attenuation and non-corrected datasets were reviewed. FINDINGS: DISTRIBUTION: The maximum perfused segment at stress is in the anterior wall. PERFUSION STUDY: The pattern of perfusion at stress is within normal limits. The ventricular cavity appears mildly dil ated. GATED STUDY: There is intact wall motion.. Ejection fraction is estimated at 44%. CONCLUSION: 1. No findings to indicate stress-induced myocardial ischemia identified. The calculated ejection fra ction is somewhat low at 44%. RISK CATEGORY: Intermediate (1-3% Annual Mortality Rate) Joshua Han MD on May 24, 2017 at 14:15 Board Certified Radiologist. This report was verified electronically.
[2017-05-24 15:56] LABS: POTASSIUM 3.7 MEQ/L (3.5-5.1)
[2017-05-24] MEDS: DIVALPROEX SODIUM E.R. 250 MG TAB PO SCH (21:48)
[2017-05-24] MEDS: ATORVASTATIN 40 MG TAB PO SCH (21:49)
[2017-05-24] MEDS: buPROPion HCL 150 MG SUSTAINED RELEASE TAB PO SCH (21:49)
[2017-05-24] MEDS: INSULIN DETEMIR 100 UNITS/ML VIAL SQ SCH (21:53)
[2017-05-25] VITALS (7 sets, daily range): BP systolic 135–144; BP diastolic 65–74; PULSE 63–76; RESP 16–19; TEMP 97.7–98.5; O2SAT 95–97
[2017-05-25] MEDS: NITROGLYCERIN 2% OINT 1 GM PACKET TOPICAL SCH ×2 (05:55)
[2017-05-25] MEDS: INSULIN ASPART SUPPLEMENTAL SCALE SQ SCH ×2 (06:46→13:09)
[2017-05-25] MEDS: SODIUM CHLORIDE 0.9% FLUSH 5 ML FLUSH IVF SCH (09:00)
[2017-05-25] MEDS: ASPIRIN 325 MG TAB PO SCH (09:01)
[2017-05-25] MEDS: PARoxetine HCL 20 MG TAB PO SCH (09:02)
[2017-05-25] MEDS: PANTOPRAZOLE SOD 40 MG DELAYED RELEASE TAB PO SCH (09:02)
[2017-05-25] MEDS: FUROSEMIDE 20 MG TAB PO SCH (09:03)
[2017-05-25] MEDS: LISINOPRIL 20 MG TAB PO SCH (09:03)
[2017-05-25] MEDS: busPIRone HCL 10 MG TAB PO SCH (09:04)
--- NOTE | 2017-05-25 12:10 | HHI.PR ---
Subjective Remarks Follow up for chest pain, dyspnea, nausea/vomiting. The patient reports feeling better again today. He denies any further chest pains. Denies any shortness of breath at rest or with exertion to the restroom. Denies any further abdominal pain, nausea/vomiting. Discussed results of nuclear stress test and possibility of diagnosis of CHF. The patient does admit to intermittent lower extremity swelling. Denies any recent weight gain. Also discussed discontinuing NSAIDs, patient then requests prescription for percocet for when the pain gets "really bad". He complains of chronic pain at his left ankle, bilateral shoulders, and lower back. He states he ends up taking percocet only once a day at bedtime but he believes he is out of this medication. Objective Vitals Vital Signs Date Time Temp Pulse Resp B/P Pulse Ox O2 Delivery O2 Flow Rate FiO2 05/25/17 11:25 97.7 67 16 135/70 97 05/25/17 08:07 97.8 63 16 144/74 96 05/25/17 06:26 21 05/25/17 05:03 98.5 72 17 135/65 95 05/25/17 04:05 67 05/25/17 00:16 76 05/25/17 00:08 98.5 66 19 140/68 97 05/24/17 20:15 98.0 66 19 139/73 98 05/24/17 20:15 69 05/24/17 16:27 97.5 68 18 145/72 98 Result Diagram: 05/23/17 1140 05/24/17 1514 Imaging Last Impressions Myocardial Perfusion Scan Nuc Med 05/24/17 0000 Signed Impressions: Service Date/Time: Wednesday, May 24, 2017 12:33 - CONCLUSION: 1. No findings to indicate stress-induced myocardial ischemia identified. The calculated ejection fraction is somewhat low at 44%%. RISK CATEGORY: Intermediate (1-3%% Annual Mortality Rate) Joshua Han MD Chest X-Ray 05/23/17 1131 Signed Impressions: Service Date/Time: May 12:00 - CONCLUSION: 1. Post surgical changes. Mild, chronic interstitial changes but no acute abnormality. Joshua Han MD Objective Remarks GENERAL: Well-nourished, well-developed pleasant elderly male patient in [facility]. SKIN: Warm and dry. No rash. HEENT: Normocephalic. Atraumatic. Pupils equal and round. Mucous membranes pink and moist. CARDIOVASCULAR: Regular rate and rhythm. S1, S2 noted. No murmur appreciated. No chest wall tenderness to palpation. Midline sternotomy scar and left upper chest pacer. RESPIRATORY: No accessory muscle use. Clear to auscultation. Breath sounds equal bilaterally. GASTROINTESTINAL: Abdomen soft, non-tender, nondistended. Normoactive bowel sounds x4. MUSCULOSKELETAL: No obvious deformities. Extremities without clubbing, cyanosis , or edema. NEUROLOGICAL: Awake and alert. No obvious cranial nerve deficits. Motor grossly within normal limits. Moves all extremities spontaneously. Normal speech. PSYCHIATRIC: Appropriate mood and affect; insight and judgment normal. Medications and IVs Current Medications Medications (Trade) Dose Ordered Sig/Cassie Route Start Time Stop Time Status Last Admin (Nitroglycerin 2% Oint) 1 inch Q6HR TOPICAL 05/23/17 18:00 05/23/17 16:44 (NS Flush) 2 ml UNSCH PRN IVF 05/23/17 17:00 (NS Flush) 2 ml BID IVF 05/23/17 21:00 05/25/17 09:00 (Tylenol) 500 mg Q4H PRN PO 05/23/17 17:00 (Castile 7.5-325 Mg) 1 tab Q4H PRN PO 05/23/17 17:00 (Zofran Inj) 4 mg Q6H PRN IV 05/23/17 17:00 (Protonix) 40 mg DAILY PO 05/23/17 17:00 05/25/17 09:02 (Lipitor) 40 mg HS PO 05/23/17 21:00 05/24/17 21:49 (Buspar) 15 mg BID PO 05/23/17 21:00 05/25/17 09:04 (Depakote Er) 750 mg HS PO 05/23/17 21:00 05/24/17 21:48 (Lasix) 20 mg DAILY PO 05/24/17 09:00 05/25/17 09:03 (Levemir Inj) 42 units HS SQ 05/23/17 21:00 05/24/17 21:53 (Paxil) 40 mg DAILY PO 05/24/17 09:00 8/19/17 09:02 (Ambien) 5 mg HS PRN PO 05/23/17 18:15 (Prinivil) 40 mg DAILY PO 05/24/17 09:00 05/25/17 09:03 (D50w (Vial) Inj) 25 ml UNSCH PRN IV 05/23/17 17:45 (Glucagon Inj) 1 mg UNSCH PRN IM/SQ 05/23/17 17:45 (Pill Splitter) 1 ea UNSCH PRN OTHER 05/23/17 18:00 (Aspirin) 325 mg DAILY PO 05/24/17 09:00 05/25/17 09:01 (Lovenox Inj) 30 mg Q24H SQ 05/23/17 20:00 Hold 05/23/17 22:54 (Wellbutrin Sr) 150 mg HS PO 05/23/17 22:00 05/24/17 21:49 A/P Problem List: (1) Chest pain ICD Code: R07.9 Status: Acute (2) CAD (coronary artery disease) ICD Code: I25.10 Status: Acute Assessment and Plan 81-year-old male patient with a known medical history of dyslipidemia, CAD with CABG in 2012, diabetes and hypertension who presented to the ED with complaints of chest pain and vomiting x 2 days. Chest pain: with associated dyspnea/diaphoresis/nausea; worse with any exertion , relieved by rest. CXR reviewed showing no acute abnormalities. - Patient was seen by Dr. Jones in the chest pain center with recommendations to admit to hospitalist service for further work-up of chest pain complaint and GI complaints. - Serial cardiac enzymes negative x3 and EKG reviewed, NSR with no acute ischemic changes - Given nitro ointment, aspirin, statin, BB, pain control with norco prn - Nuclear stress test with no findings to indicate stress-induced myocardial ischemic; low EF at 44% - Check echocardiogram Nausea/vomiting: questionable etiology gastritis vs cardiac etiology. GI cocktail given in ED. -Zofran and Phenergan PRN. -S/p IVF -Patient does take Naproxen bid, started on Protonix. -N/V resolved, instructed patient to stop taking Naproxen and all NSAIDs Type 2 diabetes mellitus, chronic: Continue current medication. -ACCU checks ACHS. Sliding scale insulin, cover as needed. -Continue home Levemir 42 units sq Hs. Coronary artery disease with history of CABG: -Continue Metoprolol and aspirin. Acute kidney injury: suspect secondary to dehydration and frequent emesis. -Creatinine 1.33, no previous labs to compare. -Encourage hydration. -Repeat BMP stable. Hypertension, chronic: Continue Lisinopril. Monitor BP closely. Hyperlipidemia: Continue home Lipitor. Depression: Continue home Bupropion and Paxil. GI Prophylaxis: Protonix. DVT Prophylaxis: SCDs/TEDs. Lovenox. Discharge Planning 1215hrs: Likely discharge later today after echocardiogram resulted. 1600hrs: Patient's echocardiogram resulted with EF 50%. Discussed at length with the patient. 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 The patient is understanding and agrees with discharge plan. [facility] was [facility]. Discharge patient to home Condition on discharge: Improved Heart Healthy/Diabetic Diet as tolerated Ad Luz activity Rx written: Protonix 40mg daily, Percocet 5/325mg #20 Follow-up with primary care physician and cardiology in 1 week Problem Qualifiers (1) Chest pain: Qualified Code: R07.9 - Chest pain, unspecified type Jocelyn Castanon PA-C May 25, 2017 12:10 pm
--- NOTE | 2017-05-25 15:07 | ECHRPT ---
Indication: cardiomyopathy CONCLUSIONS Normal left ventricular size. Wall thickness is normal. The left ventricular systolic function is low normal with an estimated ejection fraction 50% Mild mitral valve regurgitation. Aortic valve sclerosis is present. Trace aortic valve regurgitation. BP: / HR: Rhythm: Sinus MEASUREMENTS (Male / Female) Normal Values Technical Quality:Good 2D ECHO LV Diastolic Diameter PLAX 4.9 cm 4.2 - 5.9 / 3.9 - 5.3 cm LV Systolic Diameter PLAX 3.8 cm IVS Diastolic Thickness 0.9 cm 0.6 - 1.0 / 0.6 - 0.9 cm LVPW Diastolic Thickness 0.7 cm 0.6 - 1.0 / 0.6 - 0.9 cm LV Relative Wall Thickness 0.3 LA Systolic Diameter LX 3.7 cm 3.0 - 4.0 / 2.7 - 3.8 cm M-MODE Aortic Root Diameter MM 3.6 cm AV Cusp Separation MM 2.4 cm DOPPLER AV Peak Velocity 137.0 cm/s AV Peak Gradient 7.5 mmHg LVOT Peak Velocity 80.5 cm/s LVOT Peak Gradient 2.6 mmHg Mitral E Point Velocity 68.6 cm/s Mitral A Point Velocity 76.0 cm/s Mitral E to A Ratio 0.9 TR Peak Velocity 156.0 cm/s TR Peak Gradient 9.7 mmHg FINDINGS LEFT VENTRICLE Normal left ventricular size. Wall thickness is normal. The left ventricular systolic function is low normal with an estimated ejection fraction 50% RIGHT VENTRICLE Normal right ventricular size and systolic function. LEFT ATRIUM The left atrial size is normal. RIGHT ATRIUM The right atrial size is normal. ATRIAL SEPTUM Normal atrial septal thickness without atrial level shunting by limited color doppler interrogation. AORTA The aortic root and proximal ascending aorta are normal in size on limited imaging. MITRAL VALVE Mild mitral valve regurgitation. AORTIC VALVE Aortic valve sclerosis is present. Trace aortic valve regurgitation. TRICUSPID VALVE Structurally normal tricuspid valve. No tricuspid valve stenosis or regurgitation. PULMONARY VALVE The pulmonary valve is not well visualized. VESSELS The inferior vena cava is normal in size. PERICARDIUM No pericardial effusion. Jeremiah Rivers MD (Electronically Signed) Final Date:25 May 2017 15:06
[2017-05-25] MEDS ORDERED: PERC5TAB12 PO (15:42)
[2017-05-25] MEDS ORDERED: PANT40TA3 PO (15:56)
--- NOTE | 2017-05-25 16:00 | HHI.DCPOC ---
Discharge Care Plan Diagnosis: (1) Gastritis (2) Acid reflux (3) CAD (coronary artery disease) (4) Hx of CABG (5) DM (diabetes mellitus) (6) Hypertension (7) Hyperlipidemia Goals to Promote Your Health * To prevent worsening of your condition and complications * To maintain your health at the optimal level Directions to Meet Your Goals Take your medications as prescribed Follow your dietary instruction Follow activity as directed Keep your appointments as scheduled Take your immunizations and boosters as scheduled If your symptoms worsen call your PCP, if no PCP go to Urgent Care Center or Emergency Room Smoking is Dangerous to Your Health. Avoid second hand smoke Call the 24-hour hour crisis hotline for domestic abuse at Jocelyn Castanon PA-C May 25, 2017 4:00 pm
== END 2017-05-25 17:30 | disposition home or self-care (01) ==
LOC: NEPC 11:16 → NEDH 12:41 → NEPHCDU 15:20 → UNDODISOB 05-24 14:22 → NEDH 05-24 15:44 → NEPHCDU 05-24 15:44 → NEPFCDU 05-24 15:47 → NEPHCDU 05-24 15:53
PROVIDERS: ADMIT Hospitalist; ATTEND Hospitalist
DX: R07.89 Other chest pain (principal); E78.5 Hyperlipidemia, unspecified; E11.9 Type 2 diabetes mellitus without complications; I10 Essential (primary) hypertension; I25.10 Atherosclerotic heart disease of native coronary artery without angina pectoris; N17.9 Acute kidney failure, unspecified; F32.9 Major depressive disorder, single episode, unspecified; G89.29 Other chronic pain; R11.2 Nausea with vomiting, unspecified; M25.572 Pain in left ankle and joints of left foot; M54.5 Low back pain; M25.511 Pain in right shoulder; M25.512 Pain in left shoulder; Z95.1 Presence of aortocoronary bypass graft; Z79.4 Long term (current) use of insulin; E78.00 Pure hypercholesterolemia, unspecified; Z79.899 Other long term (current) drug therapy
CPT/HCPCS: 71010; 76937; 78452; 80048; 82550; 82552; 82948; 83735; 84484; 85025; 85610; 85730; 93005; 93017; 93306; 96372; 96374; 99285; A9502; G0378; J1650; J1815; J2405; J2550; J2785